=== PATIENT | male | born 1995 | race Caucasian/White ===

== ENCOUNTER → 2018-08-21 | Outpatient (CLI) | payer OTHER ==
[2018-08-21 10:25] LABS: BASOPHILS % (AUTO) 0 % (0-10); EOSINOPHILS # (AUTO) 0.1 10^3/uL (0.0-0.3); EOSINOPHILS % (AUTO) 1 % (0-10); HEMATOCRIT 46 % (40-54); HEMOGLOBIN 16.6 G/DL (13.3-17.7); LYMPHOCYTES # (AUTO) 2.1 X 10^3 (1.0-4.0); LYMPHOCYTES % (AUTO) 31 % (12-44); MEAN CORPUSCULAR HEMOGLOBIN 31 PG (25-34); MEAN CORPUSCULAR HGB CONC 36 G/DL (32-36); MEAN CORPUSCULAR VOLUME 87 FL (80-99); MONOCYTES # (AUTO) 0.5 X 10^3 (0.0-1.0); MONOCYTES % (AUTO) 7 % (0-12); NEUTROPHILS # (AUTO) 4.2 X 10^3 (1.8-7.8); NEUTROPHILS % (AUTO) 62 % (42-75); PLATELET COUNT 216 10^3/uL (130-400); RED CELL DISTRIBUTION WIDTH 12.1 % (10.0-14.5); WHITE BLOOD COUNT 6.8 10^3/uL (4.3-11.0)
[2018-08-21 10:43] LABS: PROTHROMBIN TIME PATIENT 13.4 SEC (12.2-14.7)
[2018-08-21 10:48] LABS: ALANINE AMINOTRANSFERASE 19 U/L (0-55); ALBUMIN 4.8 GM/DL (3.2-4.5); ALKALINE PHOSPHATASE 66 U/L (40-136); BILIRUBIN,TOTAL 1.2 MG/DL (0.1-1.0); BUN/CREATININE RATIO 13; CALCIUM 10.3 MG/DL (8.5-10.1); CARBON DIOXIDE 27 MMOL/L (21-32); CHLORIDE 105 MMOL/L (98-107); CREATININE SERUM 1.19 MG/DL (0.60-1.30); GFR ESTIMATED > 60; GLUCOSE 88 MG/DL (70-105); POTASSIUM 4.3 MMOL/L (3.6-5.0); SODIUM 142 MMOL/L (135-145); TOTAL PROTEIN 7.4 GM/DL (6.4-8.2)
== END ==
LOC: LAB 09:59
PROVIDERS: ATTEND Nurse Practitioner Family
DX: K06.8 Other specified disorders of gingiva and edentulous alveolar ridge (principal); K91.840 Postprocedural hemorrhage of a digestive system organ or structure following a digestive system procedure; Z83.49 Family history of other endocrine, nutritional and metabolic diseases
CPT/HCPCS: 36415; 80053; 84443; 85025; 85610; 85730

== ENCOUNTER 2022-03-27 02:19 | Emergency (ER) | payer OTHER ==
--- NOTE | 2022-03-27 02:57 | ED GI ---
General Chief Complaint: Abdominal/GI Problems Stated Complaint: DIARRHEA - PASSED OUT Nursing Triage Note: TO ED VIA POV AND AMBULATORY TO ROOM 5 WITH C/O 3 EPISODES OF DIARRHEA SINCE YESTERDAY. Source of Information: Patient Exam Limitations: No Limitations History of Present Illness Date Seen by Provider: Mar 27, 2022 Time Seen by Provider: 02:45 Initial Comments 26-year-old male who is otherwise healthy presents to the emergency department today for loose stools. 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 He states when he has these episodes he is on the toilet for about 30 minutes at a time, each with several bouts of loose stool. During the last episode was about 1230 or 1:00 this morning he passed out. He does remember feeling clammy, lightheaded just prior to passing out but had no chest pain or shortness of breath. Currently he feels back to normal. He denies any dizziness, lightheadedness, palpitations, chest pain, abdominal pain, urinary symptoms. During this whole thing he is not really had any focal abdominal pain just diffuse abdominal cramping just before watery stools. No recent travel, camping, antibiotics or other medication Allergies and Home Medications Allergies Coded Allergies: No Known Drug Allergies (Unverified , 03/27/22) Patient Home Medication List Home Medication List Reviewed: Yes Review of Systems Review of Systems Constitutional: no symptoms reported EENTM: No Symptoms Reported Respiratory: No Symptoms Reported Cardiovascular: No Symptoms Reported Gastrointestinal: Diarrhea Genitourinary: No Symptoms Reported Musculoskeletal: no symptoms reported Skin: no symptoms reported Psychiatric/Neurological: Other (Passed out) Endocrine: No Symptoms Reported Hematologic/Lymphatic: No Symptoms Reported Past [id number] Hx Patient Social History Tobacco Use?: No Use of E-Cig and/or Vaping dev: No Substance use?: No Alcohol Use?: No Immunizations Up To Date Influenza Vaccine Up-to-Date: No; Not Current Family Medical History Reviewed Nursing Family Hx No Pertinent Family Hx Physical Exam Vital Signs Vital Signs - First Documented 03/27/22 02:33 Temp 36.1 Pulse 67 Resp 18 B/P (MAP) 138/85 (102) Pulse Ox 98 O2 Delivery Room Air Capillary Refill : Less Than 3 Seconds Height/Weight/BMI Height: '" Weight: lbs. oz. kg; BMI Method: General Appearance: WD/WN, no apparent distress HEENT: PERRL/EOMI, normal ENT inspection, TMs normal, pharynx normal Neck: non-tender, full range of motion, supple, normal inspection Respiratory: chest non-tender, lungs clear, normal breath sounds, no respiratory distress, no accessory muscle use Cardiovascular: regular rate, rhythm, no edema, no gallop, no JVD, no murmur Gastrointestinal: normal bowel sounds, non tender, soft, no organomegaly, no pulsatile mass Extremities: normal range of motion, non-tender, normal inspection, no pedal edema, no calf tenderness, normal capillary refill Back: normal inspection, no vertebral tenderness 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 Syncope as he describes it is likely a vasovagal episode. He has no indication that there is cardiac involvement dysrhythmia. No indication of neurologic involvement or electrolyte abnormality. His vital signs are completely normal with a normal exam. He fe els back to normal. We will discharge him home after we give him Imodium here. Recommend continued Imodium at home, and calcium if he has persistent loose stools. Did advise stool studies if symptoms last longer than a week. Impression Primary Impression: Loose stools Additional Impression: Vasovagal episode Disposition: 01 HOME, SELF-CARE Condition: Stable Departure-Patient Inst. Referrals: NO,LOCAL PHYSICIAN (PCP/Family) Primary Care Physician Patient Instructions: Diarrhea in Adolescents and Adults, Vasovagal Response (DC) Add. Discharge Instructions: Please use Imodium [id number] as instructed on the package insert. If you continue to have loose stools I would use Tums in addition to this. I think he had a vasovagal episode that caused you to pass out. There is no real treatment for this, you just need to be cognizant of the symptoms to note that may pass out in the future. Follow-up with your primary doctor for any nonemergent needs. Return to the emergency department for any severe concerns All discharge instructions reviewed with patient and/or family. Voiced understanding. JULIO PATEL DO Mar 27, 2022 02:57
[2022-03-27] MEDS ORDERED: LOPERAMIDE 2 MG (IMODIUM) TABLET PO ONE (03:00)
[2022-03-27 03:05] VITALS: BP 137/80
== END 2022-03-27 03:05 | disposition home or self-care (01) ==
LOC: EDUNIT# 02:19 → ER 02:21
DX: R19.7 Diarrhea, unspecified (principal); R55 Syncope and collapse; Z28.310 Unvaccinated for COVID-19
CPT/HCPCS: 99283